=== PATIENT | female | born 1990 | race Caucasian/White ===

== ENCOUNTER 2019-03-08 11:50 | Emergency (ER) | payer OTHER ==
[~2019-03-08] VITALS: Ht 170.2 cm; Wt 99.0 kg
[2019-03-08 12:21] LABS: CLARITY,URINE CLEAR (Clear); COLOR,URINE YELLOW (Yellow); GLUCOSE, URINE NEGATIVE (Neg); KETONES,URINE NEGATIVE (Neg); LEUKOCYTE ESTERASE ,URINE NEGATIVE (Neg); NITRITES, URINE NEGATIVE (Neg); OCCULT BLOOD,URINE MODERATE (Neg); PH,URINE 8.5 (4.8-8.0); PROTEIN,URINE NEGATIVE (Neg); UROBILINOGEN,URINE 0.2 E.U/dL (0.2-1.0)
[2019-03-08 12:22] LABS: URINE HCG NEGATIVE (NEG)
[2019-03-08 12:25] LABS: UA COLLECTION TYPE CLN CATCH MIDSTREAM
[2019-03-08 12:29] LABS: BACTERIA,URINE NONE SEEN /HPF (Neg); MUCUS STRANDS NONE SEEN /LPF (Neg); SQUAMOUS EPITHELIAL CELL,UR NONE SEEN /LPF (FEW); WBC,URINE NONE SEEN /HPF (0-4)
[2019-03-08 12:44] LABS: BASOPHILS % (AUTO) 0.3 % (0-1); EOSINOPHILS % (AUTO) 0.4 % (0-6); HEMATOCRIT 41.9 % (35.0-45.0); HEMOGLOBIN 14.2 g/dl (12.0-16.0); LYMPHOCYTES # (AUTO) 0.2 X10'3 (1.1-4.8); LYMPHOCYTES % (AUTO) 1.6 % (21-51); MEAN CORPUSCULAR HEMOGLOBIN 31.5 PG (27.0-31.0); MEAN CORPUSCULAR HGB CONC 33.8 g/dL (33.0-36.5); MEAN CORPUSCULAR VOLUME 93.1 FL (78-98); MEAN PLATELET VOLUME 8.7 FL (7.4-10.4); MONOCYTES # (AUTO) 0.3 X10'3 (0-0.9); MONOCYTES % (AUTO) 3.1 % (2-12); NEUTROPHILS # (AUTO) 10.3 X10'3 (1.8-7.7); NEUTROPHILS % (AUTO) 94.6 % (42-75); PLATELET COUNT 264 X10'3 (140-440); RED BLOOD COUNT 4.49 X10'6 (4.20-5.60); RED CELL DISTRIBUTION WIDTH 13.6 % (11.5-14.5); WHITE BLOOD COUNT 10.9 X10'3 (4.5-11.0)
[2019-03-08 13:03] LABS: ALANINE AMINOTRANSFERASE 33 U/L (12-78); ALBUMIN 3.8 G/DL (3.4-5.0); ALBUMIN/GLOBULIN RATIO 1.1 (1.1-1.5); ALKALINE PHOSPHATASE 77 IU/L (46-116); ANION GAP 9 (8-16); ASPARTATE AMINO TRANSFERASE 27 U/L (10-37); BILIRUBIN,TOTAL 0.9 MG/DL (0.1-1.0); BLOOD UREA NITROGEN 12 MG/DL (7-18); BUN/CREATININE RATIO 16.2 (6.6-38.0); CALCIUM 8.5 MG/DL (8.5-10.1); CHLORIDE 106 MMOL/L (99-107); CREATININE 0.74 MG/DL (0.40-0.90); GLUCOSE 105 MG/DL (70-104); LIPASE 108 U/L (73-393); POTASSIUM 3.7 MMOL/L (3.5-5.1); SODIUM 141 MMOL/L (135-145); TOTAL CARBON DIOXIDE 26.1 MMOL/L (24-32); TOTAL PROTEIN 7.4 G/DL (6.4-8.2); eGFR > 90 ML/MIN
[2019-03-08] MEDS ORDERED: ibuprofen tablet 400 MG TABLET PO ONE (13:15)
[2019-03-08] MEDS ORDERED: ONDA4TAB12 PO (15:01)
[2019-03-08 15:11] VITALS: BP 106/62
[2019-03-09] MEDS ORDERED: ONDA8TAB6 PO (01:47)
== END 2019-03-08 15:12 | disposition home or self-care (01) ==
LOC: ER 11:51
DX: R11.10 Vomiting, unspecified (principal); R19.7 Diarrhea, unspecified
CPT/HCPCS: 36415; 80053; 81001; 81025; 83690; 85025; 87502; 87503; 99283

== ENCOUNTER 2019-03-08 21:23 | Emergency (ER) | payer OTHER ==
[~2019-03-08] VITALS: Ht 170.2 cm; Wt 57.9 kg
[~2019-03-08 21:23] MED LIST: ONDA4TAB12 PO
--- NOTE | 2019-03-08 22:32 | NUR ---
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
[2019-03-09] MEDS ORDERED: pantoprazole 40 MG vial IV ONE (00:20)
[2019-03-09] MEDS ORDERED: famotidine/PF 10 mg/ml inj IV ONE (00:20)
[2019-03-09] MEDS ORDERED: normal saline 1000ML IV soln IVB ONE (00:20)
[2019-03-09] MEDS ORDERED: ondansetron/PF 4mg/2ml inj IV ONE (00:20)
[2019-03-09] MEDS ORDERED: acetaminophen 325mg tablet PO ONE (01:15)
[2019-03-09] MEDS ORDERED: ketorolac trometh. 30mg/ml inj. IV ONE (01:45)
[2019-03-09] MEDS ORDERED: proCHLORperazine 10 MG/2 ml inj IV ONE (01:45)
[2019-03-09] MEDS ORDERED: ONDA8TAB6 PO (01:47)
[2019-03-09 02:13] VITALS: BP 101/62
== END 2019-03-09 02:19 | disposition home or self-care (01) ==
LOC: ER 21:23
DX: R10.84 Generalized abdominal pain (principal); R11.2 Nausea with vomiting, unspecified; R50.9 Fever, unspecified; R19.7 Diarrhea, unspecified; R53.83 Other fatigue; Z79.899 Other long term (current) drug therapy
CPT/HCPCS: 96361; 96374; 96375; 99283; C9113; J2405; J3490; J7030